=== PATIENT | male | born 1965 | race Caucasian/White ===

== ENCOUNTER → 2018-07-03 16:57 | Outpatient (CLI) | payer BC, SELFPAY ==
[2018-07-03 19:26] LABS: TSH w/ Reflex to FT4 1.06 uIU/mL (0.47-4.68)
== END ==
PROVIDERS: Visit Provider Physician Assistant
DX: E03.9 Hypothyroidism, unspecified (principal)
CPT/HCPCS: 36415; 84443

== ENCOUNTER → 2018-08-11 14:21 | Outpatient (CLI) | payer SELFPAY ==
[2018-08-11 16:47] LABS: Hepatitis B Surface Antigen NEGATIVE s/c (NEGATIVE)
[2018-08-11 17:03] LABS: HIV 1 and 2 Antibody NEGATIVE (NEGATIVE); Hep C Virus Ab w/Reflex Quant NEGATIVE s/c (NEGATIVE); Urine N gonorrhoeae NOT DETECTED
[2018-08-11 17:10] LABS: Urine Chlamydia NOT DETECTED
[2018-08-13 14:39] LABS: RPR Screen Nonreactive (Nonreactive)
== END ==
PROVIDERS: Visit Provider Physician Assistant
DX: Z11.3 Encounter for screening for infections with a predominantly sexual mode of transmission (principal)
CPT/HCPCS: 36415; 86592; 86703; 86803; 87340; 87491; 87591